=== PATIENT | male | born 1990 | race Hispanic/Latino ===

== ENCOUNTER 2016-07-18 00:21 | Emergency (ER) | payer BC ==
[2016-07-18 00:39] VITALS: BP 128/89; PULSE 84; RESP 17; TEMP 97.8; O2SAT 99
--- NOTE | 2016-07-18 01:18 | ED PDOC ---
HPI: Chest Pain Time Seen by Provider: 07/18/16 01:05 Chief Complaint (Nursing): Chest Pain Chief Complaint (Provider): Hiccups x4 days History Per: Patient History/Exam Limitations: no limitations Onset/Duration Of Symptoms: Days (4) Current Symptoms Are (Timing): Still Present (Difficulty sleeping) Quality: Sharp (Pain on expiration and with hiccuping) Modifying Factors: None Exacerbating Factors: None Alleviating Factors: None Additional Complaint(s): 26M p/w hiccups x4 days. Symptoms began evening prior to "going out". He now is experiencing mid-anterior chest discomfort on expiration and mild sensation of SOB. He has only tried to take Zonia-seltzer and reports even consuming alcohol /Mon/Mon did not relieve hiccups. He denies URI symptoms , heart palpitations, cough, travel, family history of bleeding/clotting disorders, drug use. - Risk Factors PE Risk Factors: Neg: Extremity Immobilization/Fx, Decreased Mobilty /Activity, Recent Major Surgery, Recent Hospitalization, Active Cancer, Previous DVT, Previous PE, Venous Stasis, Recent Major Trauma Past Medical History Vital Signs: Last Vital Signs Temp 36.6 C 07/18/16 00:36 Pulse 84 07/18/16 00:36 Resp 17 07/18/16 00:36 BP 128/89 07/18/16 00:36 Pulse Ox 99 07/18/16 03:41 - Medical History PMH: No Chronic Diseases - Family History Family History: States: No Known Family Hx - Home Medications Home Medications: Ambulatory Orders Medication Instructions Recorded chlorproMAZINE [chlorPROMAZINE HCL] 25 mg PO TID PRN #12 tab 07/18/16 - Allergies Allergies/Adverse Reactions: Allergies Allergy/AdvReac Type Severity Reaction Status Date / Time No Known Allergies Allergy Verified 07/18/16 00:36 Review of Systems ROS Statement: Except As Marked, All Systems Reviewed And Found Negative Respiratory: Positive for: Shortness of Breath, Pleuritic Pain Physical Exam - Physical Exam Appears: Positive for: Well, Non-toxic, No Acute Distress Head Exam: Positive for: ATRAUMATIC, NORMAL INSPECTION Skin: Positive for: Normal Color, Warm Eye Exam: Positive for: EOMI, PERRL. Negative for: Nystagmus Neck: Positive for: Supple Cardiovascular/Chest: Positive for: Regular Rate, Rhythm. Negative for: Murmur Respiratory: Positive for: Normal Breath Sounds. Negative for: Decreased Breath Sounds, Crackles, Wheezing, Respiratory Distress Gastrointestinal/Abdominal: Positive for: Bowel Sounds, Soft. Negative for: Tenderness Extremity: Positive for: Capillary Refill. Negative for: Tenderness, Pedal Edema Neurologic/Psych: Positive for: Alert, gate attendant II-XII, Oriented. Negative for: Motor/Sensory Deficits - Laboratory Results Result Diagrams: 07/18/16 01:50 07/18/16 01:50 - ECG ECG: Positive for: Interpreted By Or ECG Rhythm: Positive for: Normal QRS, Sinus Rhythm O2 Sat by Pulse Oximetry: 99 - Radiology X-Ray: Interpreted by Or X-Ray Interpretation: No Acute Disease Medical Decision Making Medical Decision Making: Intractable hiccups with development of SOB and right-sided pleuritic chest pain r/o pneumothorax. - CBC: wnl - CMP: wnl - EtOH: <10 - U-tox - CXR: no active disease - CT chest w/o contrast: no pneumo/infiltrate - Thorazine 25mg, IV 0341: Hiccups have resolved Disposition - Clinical Impression Clinical Impression: Pleuritic chest pain, Hiccups - Patient ED Disposition Is Patient to be Admitted: No Counseled Patient/Family Regarding: Studies Performed, Diagnosis - Disposition Disposition: Routine/Home Disposition Time: 03:41 Condition: STABLE Prescriptions: chlorproMAZINE [chlorPROMAZINE HCL] 25 mg PO TID PRN #12 tab PRN Reason: Hiccups Instructions: Pleurisy (ED), Hiccups (ED)
[2016-07-18] MEDS ORDERED: DiphenhydrAMINE 50 mg/ml Inj IVP STA (02:04)
[2016-07-18] MEDS ORDERED: Sodium Chloride 0.9% 1,000 ML IV SCH (02:15)
[2016-07-18 03:14] LABS: HEMATOCRIT 40.2 % (35.0-51.0); MEAN CELL VOLUME 89.3 fl (80.0-94.0); MEAN CORPUSCULAR HEMOGLOBIN 31.1 pg (27.0-31.0); MEAN CORPUSCULAR HGB CONC 34.9 g/dL (33.0-37.0); RED CELL DISTRIBUTION WIDTH 13.4 % (11.5-14.5)
[2016-07-18 03:17] LABS: CHLORIDE 101 mmol/L (98-107)
[2016-07-18 03:18] LABS: POTASSIUM 4.4 MMOL/L (3.6-5.0); SODIUM 141 mmol/l (132-148)
[2016-07-18 03:20] LABS: ALB/GLOB RATIO 1.5 (1.0-2.1); ALKALINE PHOSPHATASE 62 U/L (38-126); ALT/SGPT 24 U/L (21-72); AST/SGOT 36 U/L (17-59); BILIRUBIN,TOTAL 0.7 mg/dl (0.2-1.3); BLOOD UREA NITROGEN 15 mg/dl (9-20); CARBON DIOXIDE 27 mmol/L (22-30); GFR AFRICAN-AMERICAN > 60; GLUCOSE,RANDOM 87 mg/dL (75-110)
[2016-07-18 03:21] LABS: ALCOHOL SERUM < 10 mg/dl (0-10); CALCIUM 9.7 mg/dL (8.4-10.2)
--- NOTE | 2016-07-18 08:25 | CT ---
PROCEDURE: CT Abdomen and Pelvis without contrast. HISTORY: SOB COMPARISON: None. TECHNIQUE: Contiguous axial images of the abdomen and pelvis. No oral or IV contrast given. Coronal and Sagittal reformats generated. Please note that due to lack of intravenous and oral contrast, evaluation of soft tissue structures and bowel is limited. Radiation dose: Total exam DLP = 432.19 mGy-cm. FINDINGS: LOWER THORAX: Unremarkable. LIVER: Unremarkable. No gross lesion or ductal dilatation. GALLBLADDER AND BILE DUCTS: Unremarkable. PANCREAS: Unremarkable. No mass. No ductal dilatation. SPLEEN: Unremarkable. No splenomegaly. ADRENALS: Unremarkable. KIDNEYS AND URETERS: Unremarkable. No stone or hydronephrosis. BLADDER: Grossly unremarkable. REPRODUCTIVE: Unremarkable. APPENDIX: Unremarkable. BOWEL: Unremarkable. No obstruction. No gross mural thickening. PERITONEUM: Unremarkable. No fluid collection. No free air. LYMPH NODES: Unremarkable. No enlarged lymph nodes. VASCULATURE: Unremarkable. No aortic aneurysm. BONES: No fracture or destructive lesion. OTHER FINDINGS: None. IMPRESSION: No acute findings. Please note that this report is in general agreement with the preliminary report provided by [facility].
--- NOTE | 2016-07-18 08:28 | RAD ---
HISTORY: pleuritic chest pain COMPARISON: No prior. TECHNIQUE: Chest PA and lateral FINDINGS: LUNGS: No active pulmonary disease. PLEURA: No significant pleural effusion identified. No pneumothorax apparent. CARDIOVASCULAR: Normal. OSSEOUS STRUCTURES: No significant abnormalities. VISUALIZED UPPER ABDOMEN: Normal. OTHER FINDINGS: None. IMPRESSION: No active disease.
== END 2016-07-18 03:50 | disposition home or self-care (01) ==
LOC: H.ER 00:21
DX: R07.81 Pleurodynia (principal); R06.6 Hiccough; R06.02 Shortness of breath; Z86.718 Personal history of other venous thrombosis and embolism
CPT/HCPCS: 71020; 71250; 80053; 85027; 96361; 96374; 96375; 99282; G0480; J1200; J3230; J7040